=== PATIENT | male | born 1970 | race Caucasian/White ===

== ENCOUNTER 2020-11-16 03:19 | Emergency (ER) | payer SELFPAY ==
[~2020-11-16] VITALS: Ht 167.6 cm; Wt 87.5 kg
[2020-11-16 06:03] VITALS: BP 132/83
== END 2020-11-16 06:05 | disposition home or self-care (01) ==
LOC: ED 03:49
DX: S61.451A Open bite of right hand, initial encounter (principal); L03.115 Cellulitis of right lower limb; F17.200 Nicotine dependence, unspecified, uncomplicated; W55.01XA Bitten by cat, initial encounter; Y93.89 Activity, other specified; Y92.89 Other specified places as the place of occurrence of the external cause; Y99.8 Other external cause status
CPT/HCPCS: 99283